=== PATIENT | female | born 1985 | race Caucasian/White ===

== ENCOUNTER 2019-03-19 16:09 | Inpatient (IN) | payer BC ==
[2019-03-19] MEDS ORDERED: LIDOCAINE 0.5% (PF) 5 MG/ML (50 ML SDV) SQ PRN (17:02)
[2019-03-19] MEDS ORDERED: TERBUTALINE 1 MG/ML VIAL SQ PRN (17:02)
[2019-03-19] MEDS ORDERED: METHYLERGONOVINE 0.2 MG/ML 1 ML AMP IM PRN (17:02)
[2019-03-19] MEDS ORDERED: CARBOPROST TROMETHAMINE 250 MCG/ML 1 ML AMP IM PRN (17:02)
[2019-03-19] MEDS ORDERED: OXYTOCIN 10 UNIT/ML 1 ML VIAL IM PRN (17:02)
[2019-03-19] MEDS ORDERED: BUTORPHANOL 1 MG/ML 1 ML VIAL IV PRN (17:04)
[2019-03-19] MEDS ORDERED: OXYTOCIN 30 UNITS/500 ML NS 30 UNIT in SALINE 1 500ML.BAG IV SCH (17:15)
[2019-03-19] MEDS: LACTATED RINGERS 1,000 ML IV SCH ×3 (17:36→23:45)
[2019-03-19 17:38] LABS: Basophils # (A) 0.1 k/uL (0-0.2); Basophils % (A) 0 %; Eosinophils # (A) 0.2 k/uL (0-0.7); Eosinophils % (A) 1 %; HCT 34.5 % (34.0-46.0); HGB 11.4 gm/dL (11.4-16.0); Hypochromasia Slight; Lymphocytes # (A) 2.2 k/uL (1.0-4.8); Lymphocytes % (A) 14 %; Mean Platelet Volume 9.8; Monocytes # (A) 0.7 k/uL (0-1.0); Monocytes % (A) 4 %; Neutrophils # (A) 12.7 k/uL (1.3-7.7); Neutrophils % (A) 79 %; Platelet Count 235 k/uL (150-450); RBC 4.21 m/uL (3.80-5.40); RDW 14.8 % (11.5-15.5)
[2019-03-19] MEDS ORDERED: fentaNYL (PF) 50 MCG/ML 5 ML AMP ONE (23:02)
[2019-03-19] MEDS ORDERED: SODIUM CHLORIDE 0.9% 100 ML BAG ONE (23:02)
[2019-03-19] MEDS ORDERED: ROPIVACAINE 5MG/ML 20ML VIAL ONE (23:02)
--- NOTE | 2019-03-20 03:05 | P.HPOB ---
History of Present Illness H&P Date: 03/20/19 Chief Complaint: IUP @ 38 3/7 weeks, PROM This is a 33-year-old 1 para 0 at 38-3/7 weeks with an estimated due date of 03/30/19 based on last menstrual period and equal to her 20 week ultrasound. Patient states she had rupture of membranes around 1530 this afternoon clear in nature. Patient denied contractions at that time. Patient noted good movement. Patient has been receiving routine care since about 8 weeks of . care has been essentially uncomplicated. Patient does struggle with significant anxiety which has been controlled without medication throughout the . On bloodwork patient a blood type of A+, rubella immune, RPR nonreactive, hep Sharonda surface antigen negative, HIV negative she did pass her one-hour Glucola. Group beta strep was negative on 02/23/19. Review of Systems Constitutional: Denies chills, Denies fatigue, Denies fever Ears, nose, mouth and throat: Denies headache Cardiovascular: Reports leg edema Respiratory: Denies dyspnea Gastrointestinal: Denies nausea, Denies vomiting Genitourinary: Reports Past Medical History Past Medical History: No Reported History History of Any Multi-Drug Resistant Organisms: None Reported Past Surgical History: No Surgical Hx Reported Past Anesthesia/Blood Transfusion Reactions: No Reported Reaction Past Psychological History: No Psychological Hx Reported Smoking Status: Never smoker Past Drug Use History: None Reported Medications and Allergies Home Medications Medication Instructions Recorded Confirmed Type Pnv,Calcium 72/Iron/Folic Acid 1 each PO DAILY 03/19/19 03/19/19 History [ Plus Tablet] Allergies Allergy/AdvReac Type Severity Reaction Status Date / Time No Known Allergies Allergy Verified 03/19/19 16:21 Exam Osteopathic Statement: *. No significant issues noted on an osteopathic structural exam other than those noted in the History and Physical/Consult. Vital Signs Temp Pulse Resp BP 03/19/19 16:22 98.0 F 114 H 16 131/74 Intake and Output 03/19/19 03/19/19 03/20/19 14:59 22:59 06:59 Other: Weight 195 kg Targeted physical exam is performed on this date and ophthalmic asst a well-nourished well-developed female in no acute distress, she notes nonlabored breathing in her heart is regular rate and rhythm, her abdomen is gravid and appropriate for gestational age, on cervical exam she was 2 cm/70/-2 per RN and gross rupture of membranes was noted with a positive amnisure currently she is complete and pushing heart tones are noted to be category to early decelerations with contractions are noted infant was noted to be at a -1-0 station with pushing. Results Result Diagrams: 03/19/19 17:20 Abnormal Lab Results - Last 24 Hours (Table) 03/19/19 Range/Units 17:20 WBC 16.0 H (3.8-10.6) k/uL Neutrophils # 12.7 H (1.3-7.7) k/uL Assessment and Plan (1) Term Current Visit: Yes Status: Acute Code(s): Z34.90 - ENCNTR FOR SUPRVSN OF NORMAL , UNSP, UNSP TRIMESTER SNOMED Code(s): 01525628 (2) PROM (premature rupture of membranes) Current Visit: Yes Status: Acute Code(s): O42.90 - LENA ROM, 7TH0 BETW RUPT & ONST LABR, UNSP WEEKS OF GEST SNOMED Code(s): 92292860 Plan: Patient was admitted to labor and delivery Pitocin augmentation of labor was begun given no contractions after rupture of membranes. Patient is currently pushing will anticipate spontaneous vaginal delivery.
[2019-03-20] MEDS ORDERED: LANOLIN CREAM 5 GM TUBE TOPICAL PRN (04:30)
[2019-03-20] MEDS ORDERED: ACETAMINOPHEN TAB 325 MG TAB PO PRN (04:30)
[2019-03-20] MEDS ORDERED: OXYTOCIN 20 UNITS/1000 ML NS 1,000 ML IV SCH (04:30)
[2019-03-20] MEDS ORDERED: SIMETHICONE 80 MG CHEWABLE PO PRN (04:30)
[2019-03-20] MEDS ORDERED: ZOLPIDEM 5 MG TAB PO PRN (04:30)
[2019-03-20] MEDS ORDERED: diphenhydrAMINE 25 MG CAP PO PRN (04:30)
[2019-03-20] MEDS ORDERED: BENZOCAINE/MENTHOL SPRAY 1 GM/SPRAY AEROSOL TOPICAL PRN (04:30)
[2019-03-20] MEDS ORDERED: diphenhydrAMINE 50 MG CAP PO PRN (04:30)
[2019-03-20] MEDS ORDERED: WITCH HAZEL 1 EACH MED..PAD TOPICAL PRN (04:30)
[2019-03-20] MEDS ORDERED: diphenhydrAMINE 50 MG/ML 1 ML VIAL IVP PRN ×2 (04:30)
[2019-03-20] MEDS ORDERED: HYDROCORTISONE 2.5% RECTAL CREAM 30 GM TUBE RECTAL PRN (04:30)
[2019-03-20] MEDS ORDERED: HYDROcodone/APAP 5-325MG 1 EACH TAB PO PRN (04:30)
--- NOTE | 2019-03-20 04:35 | P.PROBDLV ---
Vaginal Delivery Note - . Vaginal Delivery Note: This is a pleasant 33-year-old 1 para 0 at 38 and 3/sevenths weeks that presented with premature rupture of membranes. Patient denied contractions therefore Pitocin augmentation of labor was begun. Patient progressed through labor eventually becoming uncomfortable requesting epidural placement anesthesia department. Patient progressed to complete began pushing and had normal spontaneous vaginal delivery of a viable male infant weight of 7 lbs. 11 oz. with Apgars of 8 and 9 at one and 5 minutes respectively. After a two-minute delayed the umbo cord was doubly clamped and cut and the placenta was delivered spontaneously intact with a three-vessel cord being noted. On inspection the patient's vaginal vault a second degree midline laceration was noted therefore a 3-0 repeat was used to repair this laceration the usual fashion. Afterwards the uterus to be firm and below the umbilicus. A straight blood loss for this delivery 200 mL. A rectal exam was performed once the laceration was completely repaired and no defects were noted. Patient and infant tolerated delivery well and are resting comfortably.
[2019-03-20] MEDS: IBUPROFEN 600 MG TAB PO PRN ×3 (05:10→21:51)
[2019-03-20] MEDS ORDERED: PRENATAL VIT-IRON-FOLIC ACID 1 EACH CAP PO SCH (09:00)
[2019-03-20] MEDS: SENNOSIDES-DOCUSATE SODIUM 1 EACH TAB PO SCH ×2 (12:08→21:50)
--- NOTE | 2019-03-20 22:05 | P.PNOBGVD ---
Subjective - Subjective Principal diagnosis: PPD 0 Interval history: Patient has done well . Patient is ambulating and voiding without difficulty. She is tolerating a regular diet without nausea or vomiting. She states her pain is controlled with oral ibuprofen. Lochia is moderate at this time. She is breast-feeding without difficulty. Patient reports: Reports appetite normal, Reports voiding normally, Reports pain well controlled, Reports ambulating normally [place]: doing well, nursing well Objective - Latest Vital Signs Latest vital signs: Vital Signs Temp Pulse Resp BP BP Pulse Ox 03/20/19 20:00 97.8 F 107 H 18 118/75 96 03/20/19 16:00 98.7 F 103 H 16 111/72 98 03/20/19 12:00 98.3 F 97 16 107/85 03/20/19 08:00 98.3 F 98 14 113/67 03/20/19 06:00 97.8 F 105 H 16 121/63 97 03/20/19 05:39 98.8 F 96 16 115/59 03/20/19 05:09 107 H 16 118/62 03/20/19 05:00 98.5 F 105 H 16 115/56 03/20/19 04:45 98.5 F 105 H 16 124/58 03/20/19 04:30 98.6 F 111 H 18 115/58 03/20/19 04:15 98.7 F 120 H 18 112/57 03/20/19 04:00 98.7 F 107 H 18 119/62 Intake and Output 03/20/19 03/20/19 03/20/19 06:59 14:59 22:59 Intake Total 3900 Output Total 200 Balance 3700 Intake: IV 3900 Oxytocin 20 Units/1000 ml 900 Ns 1,000 ml @ Per Protocol IV .[facility] Rx#: [id number] Output: Estimated Blood Loss 200 Other: # Voids 1 4 - Exam Extremities: Present: edema Abdomen: Present: normal appearance, soft Uterus: Present: normal, firm Assessment and Plan (1) Term Current Visit: Yes Status: Acute Code(s): Z34.90 - ENCNTR FOR SUPRVSN OF NORMAL , UNSP, UNSP TRIMESTER SNOMED Code(s): 54099000 (2) PROM (premature rupture of membranes) Current Visit: Yes Status: Acute Code(s): O42.90 - LENA ROM, 7TH0 BETW RUPT & ONST LABR, UNSP WEEKS OF GEST SNOMED Code(s): 66701400 (3) Status post vaginal delivery Current Visit: Yes Status: Acute Code(s): NNR4063 - SNOMED Code(s): 926996504 (4) Perineal laceration Current Visit: Yes Status: Acute Code(s): DEQ8416 - SNOMED Code(s): 473344958 Plan: Patient is doing well, we will continue routine care and anticipate discharge home tomorrow.
[2019-03-21 07:22] LABS: Basophils # (A) 0.1 k/uL (0-0.2); Basophils % (A) 0 %; Eosinophils # (A) 0.1 k/uL (0-0.7); Eosinophils % (A) 1 %; HCT 29.6 % (34.0-46.0); Hypochromasia Slight; Lymphocytes # (A) 2.4 k/uL (1.0-4.8); Lymphocytes % (A) 16 %; MCH 27.3 pg (25.0-35.0); MCHC 32.7 g/dL (31.0-37.0); MCV 83.4 fL (80.0-100.0); Mean Platelet Volume 9.8; Monocytes # (A) 0.7 k/uL (0-1.0); Monocytes % (A) 5 %; Neutrophils # (A) 11.9 k/uL (1.3-7.7); Neutrophils % (A) 78 %; Platelet Count 181 k/uL (150-450); RBC 3.55 m/uL (3.80-5.40); WBC 15.4 k/uL (3.8-10.6)
[2019-03-21 07:25] LABS: HGB 9.7 gm/dL (11.4-16.0)
[2019-03-21] MEDS: IBUPROFEN 600 MG TAB PO PRN (07:42)
[2019-03-21] MEDS: SENNOSIDES-DOCUSATE SODIUM 1 EACH TAB PO SCH (07:43)
[2019-03-21 08:27] VITALS: BP 98/60; PULSE 92; RESP 16; TEMP 98.1
--- NOTE | 2019-03-21 10:50 | P.DS ---
Providers Date of admission: 03/19/19 16:55 Expected date of discharge: 03/21/19 Attending physician: Hiwot Hernandez Primary care physician: Hiwot Hernandez - Discharge Diagnosis(es) (1) Term Current Visit: Yes Status: Acute (2) PROM (premature rupture of membranes) Current Visit: Yes Status: Acute (3) Status post vaginal delivery Current Visit: Yes Status: Acute (4) Perineal laceration Current Visit: Yes Status: Acute Hospital Course: This pleasant 33-year-old 1 para 0 presented to labor and delivery at 38 and 3/sevenths weeks with complaints of rupture of membranes. Patient was noted to be grossly ruptured but no contractions had begun. Patient was started on Pitocin augmentation of labor patient progressed through labor eventually becoming uncomfortable and requesting epidural. This epidural was placed by the anesthesia department without difficulty. Patient progressed to complete and had a normal spontaneous vaginal delivery of a viable male infant weight of 7 lbs. 11 oz. and Apgars of 8 and 9 at one and 5 minutes respectively. Patient did sustain a second-degree midline laceration which was repaired in the usual fashion. Patient's course has been uneventful. On this day #1 she is ambulating and voiding without difficulty. She is tolerating a regular diet without nausea or vomiting. She states her pain is controlled with oral ibuprofen. She does wish discharge home. Patient Condition at Discharge: Good Plan - Discharge Summary Discharge Rx Participant: Yes New Discharge Prescriptions: No Action Pnv,Calcium 72/Iron/Folic Acid [ Plus Tablet] 1 each PO DAILY Discharge Medication List Pnv,Calcium 72/Iron/Folic Acid [ Plus Tablet] 1 each PO DAILY 03/19/19 [History] Follow up Appointment(s)/Referral(s): Hiwot Hernandez DO [Primary Care Provider] - 1 Week Patient Instructions/Handouts: Vaginal Delivery (GEN) Discharge Disposition: HOME SELF-CARE
== END 2019-03-21 12:05 | disposition home or self-care (01) | DRG 807 ==
LOC: FBPOP 16:09 → 4FBP 16:55
PROVIDERS: ADMIT Obstetrics & Gynecology Obstetrics; ATTEND Obstetrics & Gynecology Obstetrics
PROC: 00HU33Z Insertion of Infusion Device into Spinal Canal, Percutaneous Approach (ICD-10-PCS; principal; 2019-03-20)
PROC: 0KQM0ZZ Repair Perineum Muscle, Open Approach (ICD-10-PCS; principal; 2019-03-20)
PROC: 3E0R3BZ Introduction of Anesthetic Agent into Spinal Canal, Percutaneous Approach (ICD-10-PCS; principal; 2019-03-20)
PROC: 10E0XZZ Delivery of Products of Conception, External Approach (ICD-10-PCS; principal; 2019-03-20)
DX: O42.92 Full-term premature rupture of membranes, unspecified as to length of time between rupture and onset of labor (principal); Z37.0 Single live birth; O70.1 Second degree perineal laceration during delivery; Z3A.38 38 weeks gestation of pregnancy; O99.344 Other mental disorders complicating childbirth; F41.9 Anxiety disorder, unspecified
CPT/HCPCS: 59025; 84112; 85025; 86850; 86900; 86901; 99213

== ENCOUNTER → 2020-06-16 | Outpatient (CLI) | payer BC ==
--- NOTE | 2020-06-16 10:58 | USB ---
Reason for exam: clinical finding. History: Family history of breast cancer in paternal aunt. Physical Findings: Nurse did not find any significant physical abnormalities on exam. US Breast RT Right complete breast ultrasound includes all four quadrants, the retroareolar region and axilla. Finding demonstrates no cystic or solid lesion seen. Patient states always stable palpable right breast. These results were verbally communicated with the patient and result sheet given to the patient on 06/16/20. ASSESSMENT: Negative, BI-RAD 1 RECOMMENDATION: Clinical management of the right breast. Manage patient on a clinical basis.
== END | disposition home or self-care (01) ==
LOC: RADUSWWP 09:47
PROVIDERS: ATTEND Obstetrics & Gynecology Obstetrics
DX: N63.10 Unspecified lump in the right breast, unspecified quadrant (principal); Z80.3 Family history of malignant neoplasm of breast

== ENCOUNTER 2020-11-29 18:29 | Outpatient (CLI) | payer BC ==
[2020-11-29 19:30] VITALS: BP 127/75; PULSE 113; RESP 18; TEMP 97.6
== END 2020-11-29 19:25 | disposition home or self-care (01) ==
LOC: FBPOP 18:29
PROVIDERS: ATTEND Obstetrics & Gynecology Obstetrics
DX: O41.8X90 Other specified disorders of amniotic fluid and membranes, unspecified trimester, not applicable or unspecified (principal); Z3A.00 Weeks of gestation of pregnancy not specified
CPT/HCPCS: 59025; 84112; 99213

== ENCOUNTER 2020-12-12 05:52 | Inpatient (IN) | payer BC ==
[2020-12-12] MEDS ORDERED: OXYTOCIN 10 UNIT/ML 1 ML VIAL IM PRN (06:02)
[2020-12-12] MEDS ORDERED: CARBOPROST TROMETHAMINE 250 MCG/ML 1 ML AMP IM PRN (06:02)
[2020-12-12] MEDS ORDERED: TERBUTALINE 1 MG/ML VIAL SQ PRN (06:02)
[2020-12-12] MEDS ORDERED: LIDOCAINE 0.5% (PF) 5 MG/ML (50 ML SDV) SQ PRN (06:02)
[2020-12-12] MEDS ORDERED: METHYLERGONOVINE 0.2 MG/ML 1 ML AMP IM PRN (06:02)
[2020-12-12] MEDS: LACTATED RINGERS 1,000 ML IV SCH ×2 (06:11→11:49)
[2020-12-12] MEDS ORDERED: LACTATED RINGERS 1,000 ML IV SCH (06:15)
[2020-12-12] MEDS ORDERED: OXYTOCIN 30 UNITS/500 ML NS 30 UNIT in SALINE 1 500ML.BAG IV SCH ×2 (06:15→16:00)
[2020-12-12 06:41] LABS: Basophils % (A) 0 %; Eosinophils # (A) 0.2 k/uL (0-0.7); Eosinophils % (A) 1 %; HCT 31.4 % (34.0-46.0); HGB 10.5 gm/dL (11.4-16.0); Hypochromasia Moderate; Lymphocytes % (A) 23 %; MCH 24.9 pg (25.0-35.0); MCHC 33.3 g/dL (31.0-37.0); MCV 74.8 fL (80.0-100.0); Mean Platelet Volume 10.3; Microcytosis Slight; Monocytes # (A) 0.7 k/uL (0-1.0); Monocytes % (A) 5 %; Neutrophils # (A) 8.9 k/uL (1.3-7.7); Neutrophils % (A) 69 %; Platelet Count 246 k/uL (150-450); Poikilocytosis Slight; RDW 15.6 % (11.5-15.5); WBC 12.9 k/uL (3.8-10.6)
--- NOTE | 2020-12-12 08:54 | P.HPOB ---
History of Present Illness H&P Date: 12/12/20 Chief Complaint: IUP at 38 and 4/7, gestational hypertension This is a 35-year-old 3 para 1011 at 38-4/7 weeks that presents to labor and delivery for induction of labor secondary to gestational hypertension. Patient had noted elevation of blood pressures 140s over 90s in the office. Patient denies signs or symptoms of preeclampsia. Otherwise patient has had unc omplicated care. Patient notes good movement denies vaginal bleeding or loss of fluid. On bloodwork patient has a blood type of A+, rubella status immune, B surface antigen negative, HIV negative, group beta strep cultures negative. Review of Systems Constitutional: Denies fatigue, Denies fever Ears, nose, mouth and throat: Denies headache Cardiovascular: Reports leg edema Respiratory: Denies dyspnea Gastrointestinal: Denies constipation, Denies diarrhea, Denies nausea, Denies vomiting Genitourinary: Reports Past Medical History Past Medical History: No Reported History History of Any Multi-Drug Resistant Organisms: None Reported Past Surgical History: No Surgical Hx Reported Past Anesthesia/Blood Transfusion Reactions: No Reported Reaction Past Psychological History: No Psychological Hx Reported Smoking Status: Never smoker Past Drug Use History: None Reported - Past Family History Father Family Medical History: Congestive Heart Failure (CHF), Hypertension, Renal Disease Medications and Allergies Home Medications Medication Instructions Recorded Confirmed Type Pnv,Calcium 72/Iron/Folic Acid 1 each PO DAILY 03/19/19 12/12/20 History [ Plus Tablet] Acetaminophen [Tylenol] 1 tab PO DAILY 11/29/20 12/12/20 History Allergies Allergy/AdvReac Type Severity Reaction Status Date / Time No Known Allergies Allergy Verified 11/29/20 18:47 Exam Osteopathic Statement: *. No significant issues noted on an osteopathic structural exam other than those noted in the History and Physical/Consult. 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 heart tones are noted to be category 1 and she is sascha irregularly. Results Result Diagrams: 12/12/20 06:04 Abnormal Lab Results - Last 24 Hours (Table) 12/12/20 Range/Units 06:04 WBC 12.9 H (3.8-10.6) k/uL Hgb 10.5 L (11.4-16.0) gm/dL Hct 31.4 L (34.0-46.0) % MCV 74.8 L (80.0-100.0) fL MCH 24.9 L (25.0-35.0) pg RDW 15.6 H (11.5-15.5) % Neutrophils # 8.9 H (1.3-7.7) k/uL Assessment and Plan (1) Gestational HTN Current Visit: Yes Status: Acute Code(s): O13.9 - GESTATIONAL HTN W/O SIGNIFICANT PROTEINURIA, UNSP TRIMESTER SNOMED Code(s): 444110216 (2) Term Current Visit: No Status: Acute Code(s): Z34.90 - ENCNTR FOR SUPRVSN OF NORMAL , UNSP, UNSP TRIMESTER SNOMED Code(s): 51132688 Plan: This 35-year-old 011 at 38-4/7 weeks is admitted to labor and delivery for induction of labor secondary to gestational hypertension. Patient is admitted and Pitocin induction of labor is begun per hospital protocol. Amniotomy was performed. Patient is offered epidural versus Stadol and she will decide when ready. All questions are answered patient states understanding of the plan. Anticipate spontaneous vaginal delivery later today.
[2020-12-12] MEDS ORDERED: BUTORPHANOL 1 MG/ML 1 ML VIAL IV PRN (08:55)
[2020-12-12] MEDS ORDERED: PRENATAL VIT-IRON-FOLIC ACID 1 EACH CAP PO SCH (09:00)
[2020-12-12] MEDS ORDERED: ROPIVACAINE 100 MG, fentaNYL (PF) 200 MCG in SODIUM CHLORIDE 0.9% 76 ML EPIDURAL ONE (12:32)
[2020-12-12] MEDS ORDERED: BENZOCAINE/MENTHOL SPRAY 1 GM/SPRAY AEROSOL TOPICAL PRN (15:58)
[2020-12-12] MEDS ORDERED: diphenhydrAMINE 50 MG CAP PO PRN (15:58)
[2020-12-12] MEDS ORDERED: ZOLPIDEM 5 MG TAB PO PRN (15:58)
[2020-12-12] MEDS ORDERED: HYDROCORTISONE 2.5% RECTAL CREAM 30 GM TUBE RECTAL PRN (15:58)
[2020-12-12] MEDS ORDERED: LANOLIN CREAM 5 GM TUBE TOPICAL PRN (15:58)
[2020-12-12] MEDS ORDERED: diphenhydrAMINE 25 MG CAP PO PRN (15:58)
[2020-12-12] MEDS ORDERED: SIMETHICONE 80 MG CHEWABLE PO PRN (15:58)
[2020-12-12] MEDS ORDERED: diphenhydrAMINE 50 MG/ML 1 ML VIAL IVP PRN ×2 (15:58)
--- NOTE | 2020-12-12 16:01 | P.PROBDLV ---
Vaginal Delivery Note - . Vaginal Delivery Note: This is a 35-year-old 3 para 1011 at 38-4/7 weeks that presented to labor and delivery for induction of labor secondary to gestational hypertension. Patient was admitted to labor and delivery and Pitocin induction of labor was begun. Once regular contractions were noted amniotomy was performed and clear fluid was obtained. Patient progressed through labor eventually becoming uncomfortable and requested epidural placement. Epidural was placed without difficulty by the anesthesia department. Patient progressed to complete began pushing and had a normal spontaneous vaginal delivery of a viable male at 1543, weight of 8 lbs. 1 oz. with Apgars of 9 and 9 at one and 5 minutes respectively. After two-minute delayed the umbilical cord was doubly clamped and cut and the infant was handed to the maternal abdomen. On inspection of the patient's vaginal vault a second-degree midline laceration was noted. The placenta was delivered spontaneously intact with three-vessel cord being noted. The vaginal laceration was repaired with 3-0 Rapide in the usual fashion. Hemostasis was appreciated after repair. Uterus is noted be firm and below the umbilicus at this time. Estimated blood loss 200 mL. The bladder was drained for 200 mL of clear yellow urine. A rectal exam was performed at the end of the procedure which was normal in nature no defects were appreciated. All counts were noted be correct 2 at the end of the delivery. Patient and infant tolerated delivery well and are resting comfortably.
[2020-12-12] MEDS: IBUPROFEN 600 MG TAB PO SCH ×2 (16:30→21:45)
[2020-12-12] MEDS: SENNOSIDES-DOCUSATE SODIUM 1 EACH TAB PO SCH (21:46)
[2020-12-13] MEDS: ACETAMINOPHEN TAB 325 MG TAB PO PRN ×2 (00:30→07:52)
[2020-12-13] MEDS: IBUPROFEN 600 MG TAB PO SCH ×2 (04:37→12:55)
[2020-12-13] MEDS: SENNOSIDES-DOCUSATE SODIUM 1 EACH TAB PO SCH (07:51)
[2020-12-13 08:17] LABS: Basophils % (A) 0 %; Eosinophils # (A) 0.1 k/uL (0-0.7); Eosinophils % (A) 1 %; HCT 28.2 % (34.0-46.0); HGB 9.1 gm/dL (11.4-16.0); Hypochromasia Moderate; Lymphocytes # (A) 2.4 k/uL (1.0-4.8); Lymphocytes % (A) 15 %; MCH 24.2 pg (25.0-35.0); MCHC 32.1 g/dL (31.0-37.0); MCV 75.2 fL (80.0-100.0); Mean Platelet Volume 10.8; Microcytosis Slight; Monocytes # (A) 0.8 k/uL (0-1.0); Monocytes % (A) 5 %; Neutrophils # (A) 12.4 k/uL (1.3-7.7); Neutrophils % (A) 78 %; Platelet Count 216 k/uL (150-450); Poikilocytosis Slight; RBC 3.75 m/uL (3.80-5.40); RDW 15.9 % (11.5-15.5); WBC 15.9 k/uL (3.8-10.6)
--- NOTE | 2020-12-13 08:24 | P.DS ---
Providers Date of admission: 12/12/20 05:52 Expected date of discharge: 12/13/20 Attending physician: Hiwot Hernandez Primary care physician: Stated None - Discharge Diagnosis(es) (1) Gestational HTN Current Visit: Yes Status: Acute (2) Term Current Visit: No Status: Acute (3) Perineal laceration Current Visit: No Status: Acute (4) Status post vaginal delivery Current Visit: No Status: Acute Hospital Course: This is a 35-year-old 011 that presented to labor and delivery yesterday at 38-4/7 weeks for induction of labor secondary to gestational hypertension. Patient had been receiving routine care which was complicated by gestational hypertension diagnosed at 36 weeks. Patient was admitted to labor and delivery and Pitocin induction of labor was begun. Amniotomy was performed and clear fluid was obtained. Patient did receive epidural during labor process. Patient progressed to complete began pushing and had a normal spontaneous vaginal delivery of a viable male infant at 1543, weight of 8 lbs. 1 oz. and Apgars of 99 at one and 5 minutes respect daily. Patient did sustain a second-degree midline vaginal laceration which was repaired with 3-0 Rapide in the usual fashion. Patient's course has been uneventful. On this day #1 she is ambulating and voiding without difficulty. She is tolerating a regular diet without nausea or vomiting and feeling well. We'll plan discharge home at 24 hours. Patient Condition at Discharge: Good Plan - Discharge Summary New Discharge Prescriptions: No Action Pnv,Calcium 72/Iron/Folic Acid [ Plus Tablet] 1 each PO DAILY Acetaminophen [Tylenol] 1 tab PO DAILY Discharge Medication List Pnv,Calcium 72/Iron/Folic Acid [ Plus Tablet] 1 each PO DAILY 03/19/19 [History] Acetaminophen [Tylenol] 1 tab PO DAILY 11/29/20 [History] Follow up Appointment(s)/Referral(s): Hiwot Hernandez DO [Doctor of Osteopathic Medicine] - 4 Weeks Patient Instructions/Handouts: Vaginal Delivery (GEN), Vaginal Delivery (DC)
[2020-12-13 16:30] VITALS: BP 121/79; PULSE 90; RESP 14; TEMP 97.8
== END 2020-12-13 16:31 | disposition home or self-care (01) | DRG 807 ==
LOC: 4FBP 05:52
PROVIDERS: ADMIT Obstetrics & Gynecology Obstetrics; ATTEND Obstetrics & Gynecology Obstetrics
DX: O13.4 Gestational [pregnancy-induced] hypertension without significant proteinuria, complicating childbirth (principal); Z37.0 Single live birth; O70.1 Second degree perineal laceration during delivery; Z3A.38 38 weeks gestation of pregnancy; Z79.899 Other long term (current) drug therapy; Z82.49 Family history of ischemic heart disease and other diseases of the circulatory system; Z84.1 Family history of disorders of kidney and ureter
CPT/HCPCS: 85025; 86850; 86900; 86901